=== PATIENT | male | born 1970 | race African-American/Black ===

== ENCOUNTER 2019-04-24 20:15 | Emergency (ER) | payer BC ==
[2019-04-24] MEDS ORDERED: Ondansetron PF 4 MG/2 ML Vial ONE (20:36)
[2019-04-24] MEDS ORDERED: Sodium Chloride 0.9% 1,000 ML ONE (20:36)
[2019-04-24 21:06] LABS: Anion Gap 15 mmol/L (10-20); BUN (Urea Nitrogen) 16 mg/dL (8.9-20.6); Calc. Creatinine Clearance 0 mL/min (70-130); Calcium 9.5 mg/dL (7.8-10.44); Carbon Dioxide 24 mmol/L (22-29); Chloride 104 mmol/L (98-107); Estimated GFR-MDRD Greater than 90; Glucose 119 mg/dL (70-105); Potassium 3.9 mmol/L (3.5-5.1); Sodium 139 mmol/L (136-145)
== END 2019-04-24 21:38 | disposition home or self-care (01) ==
LOC: NAV ERS 20:15
DX: E86.0 Dehydration (principal); R19.7 Diarrhea, unspecified; B20 Human immunodeficiency virus [HIV] disease; F41.9 Anxiety disorder, unspecified; F32.9 Major depressive disorder, single episode, unspecified; Z79.899 Other long term (current) drug therapy
CPT/HCPCS: 36415; 80048; 96361; 96372; 96374; J0500; J2405; J7050